=== PATIENT | female | born 1945 | race Caucasian/White ===

== ENCOUNTER → 2017-02-01 | Outpatient (CLI) | payer MEDICARE ==
--- NOTE | 2017-02-02 09:10 | MM ---
Reason for exam: screening (asymptomatic). Last mammogram was performed 1 year and 6 months ago. History: Patient is postmenopausal. Benign US RT VAD breast biopsy of the right breast, April 23, 2013. Benign right breast aspiration of the right breast, April 23, 2013. Benign left US cyst aspiration of the left breast, February 29, 2008. Took estrogen for 3 years. Physical Findings: A clinical breast exam by your physician is recommended on an annual basis and results should be correlated with mammographic findings. MG 3D Screening Mammo W/Cad Bilateral CC and MLO view(s) were taken. Prior study comparison: August 13, 2015, bilateral MG screening mammo w CAD. November 23, 2013, CAD bilateral diagnostic mammogram. April 16, 2013, right breast ultrasound. September 26, 2012, CAD bilateral diagnostic mammogram. April 02, 2010, bilateral digital screening mammogram. There are scattered fibroglandular densities. There is chronic nodularity bilaterally. No significant changes when compared with prior studies. ASSESSMENT: Benign, BI-RAD 2 RECOMMENDATION: Routine screening mammogram of both breasts in 1 year.
== END | disposition home or self-care (01) ==
LOC: RADMAMWWP 16:43
PROVIDERS: ATTEND Obstetrics & Gynecology
DX: Z12.31 Encounter for screening mammogram for malignant neoplasm of breast (principal)
CPT/HCPCS: 77063; G0202

== ENCOUNTER → 2019-01-31 | Outpatient (CLI) | payer MEDICARE ==
--- NOTE | 2019-02-01 11:01 | MM ---
Reason for exam: screening (asymptomatic). Last mammogram was performed 2 years ago. History: Patient is postmenopausal. Benign US RT VAD breast biopsy of the right breast, April 23, 2013. Benign right breast aspiration of the right breast, April 23, 2013. Benign left US cyst aspiration of the left breast, February 29, 2008. Took estrogen for 3 years. Physical Findings: A clinical breast exam by your physician is recommended on an annual basis and results should be correlated with mammographic findings. MG 3D Screening Mammo W/Cad Bilateral CC and MLO view(s) were taken. Prior study comparison: February 01, 2017, bilateral MG 3d screening mammo w/cad. August 13, 2015, bilateral MG screening mammo w CAD. The breast tissue is heterogeneously dense. This may lower the sensitivity of mammography. Benign appearing bilateral calcifications. No suspicious abnormality. Right biopsy marker noted. Stable left superior anterior depth asymmetries. ASSESSMENT: Benign, BI-RAD 2 RECOMMENDATION: Routine screening mammogram of both breasts in 1 year.
== END | disposition home or self-care (01) ==
LOC: RADMAMWWP 07:51
PROVIDERS: ATTEND Internal Medicine
DX: Z12.31 Encounter for screening mammogram for malignant neoplasm of breast (principal)
CPT/HCPCS: 77063; 77067

== ENCOUNTER → 2021-04-03 | Outpatient (CLI) | payer MEDICARE ==
--- NOTE | 2021-04-07 11:05 | MM ---
Reason for exam: screening (asymptomatic). Last mammogram was performed 2 years and 2 months ago. History: Patient is postmenopausal. Benign US RT VAD breast biopsy of the right breast, April 23, 2013. Benign right breast aspiration of the right breast, April 23, 2013. Benign left US cyst aspiration of the left breast, February 29, 2008. Took estrogen for 3 years. Physical Findings: A clinical breast exam by your physician is recommended on an annual basis and results should be correlated with mammographic findings. MG 3D Screening Mammo W/Cad Bilateral CC and MLO view(s) were taken. Prior study comparison: January 31, 2019, bilateral MG 3d screening mammo w/cad. February 01, 2017, bilateral MG 3d screening mammo w/cad. The breast tissue is heterogeneously dense. This may lower the sensitivity of mammography. Previous mammotome biopsy in the right breast. ASSESSMENT: Benign, BI-RAD 2 RECOMMENDATION: Routine screening mammogram of both breasts in 1 year.
== END | disposition home or self-care (01) ==
LOC: RADMAMWWP 13:42
PROVIDERS: ATTEND Obstetrics & Gynecology
DX: Z12.31 Encounter for screening mammogram for malignant neoplasm of breast (principal); Z78.0 Asymptomatic menopausal state
CPT/HCPCS: 77063; 77067

== ENCOUNTER → 2021-05-05 | Outpatient (CLI) | payer MEDICARE ==
--- NOTE | 2021-05-05 14:23 | CT ---
EXAMINATION TYPE: CT ChestAbdPelvis w con DATE OF EXAM: 05/05/2021 COMPARISON: None HISTORY: Follow up endometrial cancer. Z03.89, R68.89, C54.1 CT DLP: 612.2 mGycm CONTRAST: CT scan of the chest, abdomen and pelvis is performed with Oral Contrast and with IV Contrast, patien t injected with 55 mL of Isovue 300. CT Chest: LUNGS: The lungs are clear and free of infiltrate or atelectasis. No pulmonary nodule or mass is det ected. No pleural effusion or CT evidence of interstitial lung disease. MEDIASTINUM: Thoracic aorta is of normal caliber. The heart is not enlarged. No evidence for media stinal mass or adenopathy. HILAR STRUCTURES: No evidence for mass. No hilar adenopathy is appreciated. OTHER: No significant abnormality. CONTRAST CT ABDOMEN AND PELVIS FINDINGS: LIVER/GB: There is evidence of cholelithiasis. Renal cystic changes noted. No space occupying hepatic lesion. Biliary tree is of normal caliber. PANCREAS: No inflammation. No distinct mass. SPLEEN: No splenic enlargement. No lesion seen. ADRENALS: No nodule. No thickening. KIDNEYS/BLADDER: No hydronephrosis. No nephrolithiasis. No disctinct renal mass. BOWEL: Normal appendix. Normal bowel caliber. No inflammation. GENITAL ORGANS: Left ovarian cystic lesion measuring 4.2 cm. Correlate with pelvic ultrasound. The ut erus and right ovary are unremarkable. LYMPH NODES: No greater than 1cm abdominal or pelvic lymph nodes are appreciated. AORTA: No significant abnormality. OSSEOUS STRUCTURES: No significant abnormality is seen. OTHER: Small fat-containing supraumbilical hernia. Gastric banding surgery noted. IMPRESSION: 1. No distinct endometrial mass. Uterus is free of mass lesion. Left ovarian cystic lesion requires f urther evaluation with pelvic ultrasound. 2. No evidence for metastatic disease. 3. Small gallstones.
== END | disposition home or self-care (01) ==
LOC: RADCTMAIN 11:34
PROVIDERS: ATTEND Obstetrics & Gynecology
DX: C54.1 Malignant neoplasm of endometrium (principal); N83.202 Unspecified ovarian cyst, left side; K80.20 Calculus of gallbladder without cholecystitis without obstruction
CPT/HCPCS: 82565; 84520; 71260; 74177; 36415; Q9967

== ENCOUNTER → 2021-05-18 | Outpatient (CLI) | payer MEDICARE ==
[2021-05-18 11:45] LABS: INR 0.9 (<1.2); Partial Thromboplastin Time 23.7 sec (22.0-30.0); Prothrombin Time 10.1 sec (9.0-12.0)
[2021-05-18 14:42] LABS: HCT 40.9 % (37.2-46.3); HGB 13.5 g/dL (12.0-15.0); MCH 32.8 pg (27.0-32.0); MCV 99.5 fL (80.0-97.0); Mean Platelet Volume 11.3 fL (9.5-12.2); Platelet Count 256 X 10*3/uL (140-440); RBC 4.11 X 10*6/uL (4.10-5.20); RDW 13.1 % (11.5-14.5); WBC 8.67 X 10*3/uL (4.50-10.00)
[2021-05-18 14:50] LABS: African American GFR (CKD) 82.4 (60.0-200.0); Albumin 4.6 g/dL (3.80-4.90); Albumin/Globulin Ratio 2.09 (1.60-3.17); Anion Gap 9.1 mmol/L (4.00-12.00); Calcium 9.7 mg/dL (8.7-10.3); Carbon Dioxide 28.9 mmol/L (21.6-31.8); Globulin 2.2 g/dL (1.6-3.3); Non-African American GFR(CKD) 71.1 (60.0-200.0); Potassium 4.1 mmol/L (3.5-5.5); Total Bilirubin 0.5 mg/dL (0.2-1.2); Total Protein 6.8 g/dL (6.2-8.2)
[2021-05-18 15:26] LABS: Cancer Antigen 125 13.7 U/mL (0.0-30.1)
[2021-05-18 15:53] LABS: Appearance,Urine Clear (Clear); Bilirubin,Urine Negative (Negative); Blood,Urine Negative (Negative); Color,Urine Yellow; Glucose,Urine (UA) Negative (Negative); Ketones,Urine Negative (Negative); Leukocyte Esterase,Urine Negative (Negative); Nitrite,Urine Negative (Negative); PH, Urine 6.5 (5.0-8.0); Protein,Urine Negative (Negative); Specific Gravity,Urine 1.014 (1.001-1.035); Urobilinogen,Urine <2.0 mg/dL (<2.0)
== END | disposition home or self-care (01) ==
LOC: LABWHC1 10:37
PROVIDERS: ATTEND Obstetrics & Gynecology
DX: Z01.812 Encounter for preprocedural laboratory examination (principal)
CPT/HCPCS: 80053; 86304; 85027; 85610; 85730; 81003; 36415; U0003; C9803

== ENCOUNTER 2021-08-03 09:43 | Day surgery (SDC) | payer MEDICARE ==
[2021-07-30 12:05] VITALS: BMI 21.6
--- NOTE | 2021-08-03 08:06 | P.GSHP ---
History of Present Illness H&P Date: 08/03/21 CHIEF COMPLAINT: Endometrial cancer HISTORY OF PRESENT ILLNESS: The patient is a 75-year-old female diagnosed with endometrial cancer. She needs a Mediport placement for chemotherapy. PAST MEDICAL HISTORY: See list and reviewed PAST SURGICAL HISTORY: See list and reviewed CURRENT MEDICATIONS: See list and reviewed ALLERGIES: See list and reviewed SOCIAL HISTORY: See list and reviewed FAMILY HISTORY: See list and reviewed REVIEW OF ORGAN SYSTEMS: CONSTITUTIONAL: Has weight loss. PHYSICAL EXAMINATION: Vital signs: Stable GENERAL: Well developed and in no acute distress. Pleasant. HEENT: No sclera icterus. Extraocular movements grossly intact. Moist buccal mucosa. Head is atraumatic, normocephalic. Hears conversational speech. No nasal drainage. NECK: Supple without lymphadenopathy. No JV distention. CHEST: Non-labored respirations and equal bilateral excursions. CARDIOVASCULAR: Regular rate and rhythm. Palpable 2+ radial pulses. ABDOMEN: Nontender. MUSCULOSKELETAL: No clubbing, cyanosis or edema. NEUROLOGIC: No focal or lateralizing signs. PSYCH: Appropriate affect. Alert and oriented to person, place and time. ASSESSMENT: 1. Endometrial cancer 2. Need for chemotherapeutic access. PLAN: 1. Agree with Port-A-Cath placement. Past Medical History Past Medical History: Cancer, Diabetes Mellitus, Hypertension Additional Past Medical History / Comment(s): dx 04/03 uterine cancer History of Any Multi-Drug Resistant Organisms: None Reported Past Surgical History: No Surgical Hx Reported, Hysterectomy Additional Past Surgical History / Comment(s): 05/22/21 LAEC BSO with 1st jemal lymph node in each quadrant Past Anesthesia/Blood Transfusion Reactions: No Reported Reaction Smoking Status: Never smoker - Past Family History Brother(s) Family Medical History: Deep Vein Thrombosis (DVT) Father Family Medical History: Memory Impairment Mother Family Medical History: Memory Impairment Medications and Allergies Home Medications Medication Instructions Recorded Confirmed Type Chlorthalidone 25 mg PO DAILY 07/30/21 07/30/21 History Enalapril Maleate 10 mg PO DAILY 07/30/21 07/30/21 History Potassium Chloride ER [K-Dur 10] 10 meq PO DAILY 07/30/21 07/30/21 History Simvastatin [Zocor] 20 mg PO DAILY 07/30/21 07/30/21 History amLODIPine BESYLATE 5 mg PO DAILY 07/30/21 07/30/21 History metFORMIN HCL [Glucophage] 500 mg PO BID 07/30/21 07/30/21 History Allergies Allergy/AdvReac Type Severity Reaction Status Date / Time No Known Allergies Allergy Verified 07/30/21 11:49
[~2021-08-03 09:43] MED LIST: DEXAMETHASONE SOD PHOSPHATE 4 MG/ML 1 ML VIAL IV ONE; HYDROmorphone 0.5 MG/0.5 ML SYRINGE IVP PRN; LACTATED RINGERS 1,000 ML IV SCH; MIDAZOLAM 2 MG/2 ML VIAL IV PRN; ONDANSETRON 4 MG/2 ML VIAL IVP ONE; Pre Op ABX Message 1 EACH MISC MISCELLANE ONE
[2021-08-03] MEDS ORDERED: LIDOCAINE 1% (10MG/ML) FOR IV START INTRADERMA ONE (10:22)
[2021-08-03 10:29] LABS: Glucose,Whole Blood 143 mg/dL (75-99)
[2021-08-03] MEDS ORDERED: ePHEDrine SULFATE/0.9% NACL/PF 50 MG/5 ML SYRINGE IV ONE (10:43)
[2021-08-03] MEDS ORDERED: LIDOCAINE 1% INJ 10MG/ML (20 ML MDV) ONE (10:43)
[2021-08-03] MEDS ORDERED: fentaNYL (PF) 50 MCG/ML 2 ML AMP ONE (10:43)
[2021-08-03] MEDS ORDERED: PROPOFOL 10 MG/ML 20 ML VIAL IV ONE (10:43)
[2021-08-03] MEDS ORDERED: HEPARIN SODIUM,PORCINE 100 UNIT/ML 5 ML VIAL IV ONE (11:16)
[2021-08-03] MEDS ORDERED: BUPIVACAINE (PF) 0.5% 30 ML VIAL SQ ONE ×2 (11:17→11:23)
[2021-08-03] MEDS ORDERED: SODIUM CHLORIDE 0.9% 500 ML 500 ML with HEPARIN SODIUM,PORCINE 5,000 UNIT IV ONE ×2 (11:17)
[2021-08-03 11:59] VITALS: TEMP 97
[2021-08-03 13:05] VITALS: BP 127/71; PULSE 81; RESP 20
--- NOTE | 2021-08-03 13:29 | FL ---
EXAMINATION TYPE: FL guided central line placement DATE OF EXAM: 08/03/2021 FLUOROSCOPY Fluoroscopy time of 1 seconds was used during right chest wall Port-A-Cath placement. 2 image/s docu ment/s the procedure.
--- NOTE | 2021-08-03 13:54 | XR ---
EXAMINATION TYPE: XR chest 1V confirm line [facility] DATE OF EXAM: 08/03/2021 COMPARISON: NONE HISTORY: 75-year-old female confirm Mediport placement TECHNIQUE: Single frontal view of the chest is obtained. FINDINGS: Right anterior chest wall injection port with catheter tip near the cavoatrial junction. Heart normal size. Aorta and pulmonary vasculature within normal limits. Some costochondral calcifications at the left base. Left and device noted. No consolidation or pleural effusion. IMPRESSION: 1. Right anterior chest wall injection port. Catheter tip near the cavoatrial junction. 2. No acute cardiopulmonary process.
--- NOTE | 2021-08-05 11:32 | P.OP ---
Date of Procedure: 08/03/21 Description of Procedure: SURGEON: ALEE VALLES MD DRY CLEANING CHECKER: None. PREOPERATIVE DIAGNOSES: 1. Endometrial cancer 2. Need for chemotherapeutic access. POSTOPERATIVE DIAGNOSES: 1. Endometrial cancer 2. Need for chemotherapeutic access. PROCEDURES PERFORMED: 1. Ultrasound guided central venous access of the right internal jugular venous vein. 2. Fluoroscopic guidance for central venous access right internal jugular vein 1 seconds. 3. Placement of right internal jugular power port 6 Ukrainian by [email or web address], Xcela Plus Port ANESTHESIA: IV sedation with local. ESTIMATED BLOOD LOSS: 5 mL. SPECIMENS REMOVED: None. COMPLICATIONS: None. FINDINGS: 1. No thrombus encountered along the right carotid artery or internal jugular vein. 2. Access of the right internal jugular vein under ultrasound guidance. 3. Fluoroscopy of 1 seconds. INDICATIONS: The patient is a 75-year-old female recently diagnosed with endometrial cancer. She presents for chemotherapeutic access. Benefits and risks of surgical intervention were described including bleeding, infection, mechanical problems with his port. Informed consent was obtained. DESCRIPTION OR PROCEDURE: Patient was brought into the operating room, laid in supine position. After adequate IV sedation, the chest and right neck were prepped and draped in a standard sterile fashion including the shoulder with ChloraPrep. Timeout protocol was confirmed with the surgical team regarding the patient's name, procedure to be performed including preoperative medications for which she received IV antibiotics. Bilateral SCDs were placed. An ultrasound was used to capture views of the right internal jugular vein including right carotid artery, which was patent and without thrombus along its course. The right IJ was then localized using anesthetic for the skin. A 16 Ukrainian needle was used to access the IJ. A guidewire was advanced into the IJ with dark nonpulsatile venous blood. Two fingerbreadths distal to the clavicle, on the lateral third, a transverse 1.5 to 2 cm incision was deepened into the skin after localizing the skin. A pocket was created for the port. The port on the back table was flushed with heparinized saline and then attached to the catheter tubing. An adapter was fastened to the actual port site over the tubing. The port easily had fit snug into the pocket. A subcutaneous tunneler was placed along the open end of the tubing and brought out through the separate stab incision. Fluoroscopic guidance confirmed no kinking along the tubing and the port site. Next, the J-wire was exchanged for a catheter sheath for which the tubing was cut to 25 cm and then advanced through the catheter sheath. The Peel-away sheath was then removed and the tubing was secured at the junction of the superior vena cava as well as the right atrium. The tubing was found to be crossed however functional. This was all done under fluoroscopic guidance 1 seconds. Easy pullback as well as return and aspiration was obtained of the port site. The skin incision was closed using layers using 3-0 Vicryl for the subcu followed by 4-0 Monocryl in a running subcuticular fashion. At the stick site this was also reapproximated using 4-0 Monocryl. The incisions were covered with Optifoam, The skin was cleansed and Exofin liquid glue was applied. Optifoam dressing was placed over the port site. A total of 20 mL of local anesthetic was placed. At the end of the procedure, needle, sponge, and instrument count was verified correct by surgical sales representative. Heparin lock of 5 mL was placed. The patient was awoken and pain free and taken to the second stage postanesthesia care unit. The patient tolerated the procedure well. Plan - Discharge Summary Discharge Rx Participant: No New Discharge Prescriptions: New Acetaminophen [Tylenol] 650 mg PO Q4H #30 tab Continue RX: Chlorthalidone 25 mg PO DAILY RX: Simvastatin [Zocor] 20 mg PO DAILY RX: metFORMIN HCL [Glucophage] 500 mg PO BID RX: Enalapril Maleate 10 mg PO DAILY RX: amLODIPine BESYLATE 5 mg PO DAILY RX: Potassium Chloride ER [K-Dur 10] 10 meq PO DAILY Discharge Medication List RX: Chlorthalidone 25 mg PO DAILY 07/30/21 [History] RX: Enalapril Maleate 10 mg PO DAILY 07/30/21 [History] RX: Potassium Chloride ER [K-Dur 10] 10 meq PO DAILY 07/30/21 [History] RX: Simvastatin [Zocor] 20 mg PO DAILY 07/30/21 [History] RX: amLODIPine BESYLATE 5 mg PO DAILY 07/30/21 [History] RX: metFORMIN HCL [Glucophage] 500 mg PO BID 07/30/21 [History] Acetaminophen [Tylenol] 650 mg PO Q4H #30 tab 08/03/21 [Rx] Follow up Appointment(s)/Referral(s): Alee Valles MD [STAFF PHYSICIAN] - As Needed Patient Instructions/Handouts: Implanted Venous Access Port (GEN), How to Care for Your Implanted Venous Access Port (DC) Activity/Diet/Wound Care/Special Instructions: Remove dressing on Aug 06 or for infusion May shower. No bathtub soaks for 2 weeks, Aug 06. No wide motions of the right arm to prevent dislodge of your port for 3 weeks. EXPECT BRUISING AND SLEEP WITH 2 TO 3 PILLOWS. BRUISING RESOLVES IN 2 TO 3 WEEKS. Take Tylenol, Aleve or ibuprofen for pain as needed Discharge Disposition: HOME SELF-CARE
== END 2021-08-03 14:14 | disposition home or self-care (01) ==
LOC: OR 09:43
PROVIDERS: ATTEND Surgery Plastic and Reconstructive Surgery
DX: C54.1 Malignant neoplasm of endometrium (principal); Z79.84 Long term (current) use of oral hypoglycemic drugs; Z85.42 Personal history of malignant neoplasm of other parts of uterus; I10 Essential (primary) hypertension; E78.5 Hyperlipidemia, unspecified; E11.9 Type 2 diabetes mellitus without complications; Z79.899 Other long term (current) drug therapy
CPT/HCPCS: 36561; 77001; C1788; J1644; J1642; J1100; J0690; J2405; J2001; J3010; J2704

== ENCOUNTER → 2021-12-08 | Outpatient (CLI) | payer MEDICARE ==
--- NOTE | 2021-12-08 16:31 | CT ---
EXAMINATION TYPE: CT abdomen pelvis w con DATE OF EXAM: 12/08/2021 COMPARISON: 05/05/2021 HISTORY: Endometrial cancer, obs mets. CT DLP: 542.4 mGycm CONTRAST: CT scan of the abdomen and pelvis is performed with Oral Contrast and with IV Contrast, patient injec debra with 100 mL of Isovue 300. FINDINGS: LUNG BASES-: No visible nodule. No infiltrate. LIVER/GB: Stable hepatic cyst. Cholesterol gallstones identified. Tree is of normal caliber. PANCREAS: No inflammation. No distinct mass. SPLEEN: No splenic enlargement. No lesion seen. ADRENALS: No nodule. No thickening. KIDNEYS/BLADDER: No hydronephrosis. No nephrolithiasis. Left renal cystic lesion. Urinary bladder g rossly unremarkable. BOWEL: Normal appendix. Normal bowel caliber. No inflammation. GENITAL ORGANS: Hysterectomy and nephrectomy changes noted. No recurrent or residual mass. LYMPH NODES: No greater than 1cm abdominal or pelvic lymph nodes are appreciated. AORTA: No significant abnormality. OSSEOUS STRUCTURES: No significant abnormality is seen. OTHER: No significant additional abnormality is seen. IMPRESSION: 1. Hysterectomy and nephrectomy changes noted. No recurrent or residual mass. No evidence for metasta tic disease at this time.
== END | disposition home or self-care (01) ==
LOC: RADPROMAIN 14:03
PROVIDERS: ATTEND Internal Medicine Hematology & Oncology
DX: C54.9 Malignant neoplasm of corpus uteri, unspecified (principal); Z90.5 Acquired absence of kidney; Z90.710 Acquired absence of both cervix and uterus
CPT/HCPCS: 82565; 84520; 74177; J1642; Q9967 ×2

== ENCOUNTER → 2022-03-17 | Outpatient (CLI) | payer MEDICARE | END | disposition home or self-care (01) | LOC: LABWHC1 14:51 | PROVIDERS: ATTEND Obstetrics & Gynecology | DX: C54.1 Malignant neoplasm of endometrium (principal); Z79.899 Other long term (current) drug therapy; Z90.710 Acquired absence of both cervix and uterus | CPT/HCPCS: 36415; 86304 ==

== ENCOUNTER 2022-10-26 12:09 | Emergency (ER) | payer MEDICARE ==
[2022-10-26 12:45] VITALS: BP 183/98; PULSE 84; RESP 16; TEMP 98.7
--- NOTE | 2022-10-26 13:04 | XR ---
EXAMINATION TYPE: XR Hip LT and AP Pelvis DATE OF EXAM: 10/26/2022 CLINICAL HISTORY: pain TECHNIQUE: AP and frogleg views of the left hip are obtained. Single view pelvis also submitted. COMPARISON: None. FINDINGS: There is no acute fracture/dislocation evident. The joint space appears mildly narrowed. The overlying soft tissue appears unremarkable. IMPRESSION: 1. There is no acute fracture or dislocation.ICD 10 NO FRACTURE, INITIAL EVALUATION
--- NOTE | 2022-10-26 13:33 | ED ---
Lower Extremity Injury HPI - General Chief Complaint: Extremity Injury, Lower Stated Complaint: fall, hip pain Time Seen by Provider: 10/26/22 12:58 Source: patient, family, RN notes reviewed Mode of arrival: wheelchair Limitations: no limitations - History of Present Illness Initial Comments: This is a 77-year-old female who presents to the emergency department for a left hip injury. States that when she was in her bathroom this morning, she tripped and fell on her bottom. Denies hitting her head or any loss of consciousness. She was able to get up on her own without any difficulty. Denies being on any blood thinners. Currently has pain to the left hip. Denies any prior injuries or hip replacements. She is able to walk and move her leg without any difficulty. Denies any fevers, chills, sore throat, cough, dyspnea, chest pain, palpitations, abdominal pain, nausea, vomiting, diarrhea, back pain, or headaches. MD Complaint: hip injury Injury: Hip: Left Place: home - Related Data Home Medications Medication Instructions Recorded Confirmed Potassium Chloride ER [K-Dur 10] 10 meq PO DAILY 07/30/21 10/06/21 Simvastatin [Zocor] 20 mg PO DAILY 07/30/21 10/06/21 metFORMIN HCL [Glucophage] 500 mg PO BID 07/30/21 10/06/21 Previous Rx's Medication Instructions Recorded Acetaminophen [Tylenol] 650 mg PO Q4H #30 tab 08/03/21 Allergies Allergy/AdvReac Type Severity Reaction Status Date / Time No Known Allergies Allergy Verified 10/06/21 14:01 Review of Systems ROS Statement: Those systems with pertinent positive or pertinent negative responses have been documented in the HPI. ROS Other: All systems not noted in ROS Statement are negative. Past Medical History Past Medical History: Cancer, Diabetes Mellitus, Hypertension Additional Past Medical History / Comment(s): dx 04/03 uterine cancer History of Any Multi-Drug Resistant Organisms: None Reported Past Surgical History: No Surgical Hx Reported, Hysterectomy Additional Past Surgical History / Comment(s): 05/22/21 ALEC BSO with 1st jemal lymph node in each quadrant Past Anesthesia/Blood Transfusion Reactions: No Reported Reaction Past Psychological History: No Psychological Hx Reported Smoking Status: Never smoker - Past Family History Brother(s) Family Medical History: Deep Vein Thrombosis (DVT) Father Family Medical History: Memory Impairment Mother Family Medical History: Memory Impairment General Exam Limitations: no limitations General appearance: alert, in no apparent distress Head exam: Present: atraumatic, normocephalic, normal inspection Respiratory exam: Present: normal lung sounds bilaterally. Absent: respiratory distress, wheezes, rales, rhonchi, stridor Cardiovascular Exam: Present: regular rate, normal rhythm, normal heart sounds. Absent: systolic murmur, diastolic murmur, rubs, gallop, clicks Extremities exam: Present: other (No shortening or rotation of the left leg. Full ROM of the left hip and leg. Minor tenderness to palpation over the left greater trochanter.) Neurological exam: Present: alert, oriented X3, CN II-XII intact Psychiatric exam: Present: normal affect, normal mood Skin exam: Present: warm, dry, intact, normal color. Absent: rash Course Vital Signs 10/26/22 12:42 Temperature 98.7 F Pulse Rate 84 Respiratory 16 Rate Blood Pressure 183/98 O2 Sat by Pulse 98 Oximetry Medical Decision Making - Medical Decision Making This is a 77-year-old female who presents to the emergency department for left hip pain after fall. XR of the left hip obtained, my interpretation reveals no evidence of acute fractures or dislocations. Due to her age and the noted injury, computed tomography scan of the hip was obtained for better evaluation. My interpretation of the computed tomography scan again identifies no fractures or dislocations. Patient is able to ambulate and move her leg without any difficulty. Advised ibuprofen and Tylenol for pain relief and applying ice for 10-15 minutes every 2-3 hours. Return precautions reviewed in depth, the patient is instructed to return to the emergency department with any new, worsening, or concerning symptoms. Patient verbalized understanding. This case was discussed in detail with the attending ED physician. Presentation, findings, and treatment plan discussed in detail as well. - Radiology Data Radiology results: report reviewed, image reviewed Disposition Clinical Impression: Contusion of left hip Disposition: HOME SELF-CARE Instructions (If sedation given, give patient instructions): Fall Prevention for Older Adults (ED), Hip Pain (ED) Additional Instructions: Return to the emergency department with any new, worsening, or concerning symptoms. Alternate with ibuprofen and Tylenol for pain relief. Apply ice for 10-20 minutes every 2-3 hours for the first couple of days. Use heat thereafterwards. Follow up with your primary care provider in 1-2 days. Is patient prescribed a controlled substance at d/c from ED?: No Referrals: Abram Morse MD [Primary Care Provider] - 1-2 days
--- NOTE | 2022-10-26 13:58 | CT ---
EXAMINATION TYPE: CT hip LT wo con CT DLP: 492.9 mGycm, Automated exposure control for dose reduction was used. DATE OF EXAM: 10/26/2022 1:50 PM COMPARISON: Extremity radiograph same day. CLINICAL INDICATION:Female, 77 years old with history of Pain after fall, normal xray; PHH, Pain afte r fall, normal X-ray TECHNIQUE: Axial images were obtained of the left hip . Additional coronal and sagittal reformatted images and soft tissue and bone window were obtained for review. . Contrast used: None Oral contrast used: None FINDINGS: There is no evidence of fracture, subluxation, or dislocation. No significant soft tissue swelling or joint effusion is identified. No focal muscular atrophy or edema is identified. No radiop aque foreign body identified. Mild osteophyte formation of the superior acetabulum. Atherosclerosis of the arterial vasculature. Di verticula in the sigmoid colon. IMPRESSION: 1. No evidence of fracture of the visualized osseous structures. 2. Mild left hip osteoporosis. 3. Colonic diverticulosis. 4.
== END 2022-10-26 14:28 | disposition home or self-care (01) ==
LOC: EC 12:09
DX: S70.02XA Contusion of left hip, initial encounter (principal); E11.9 Type 2 diabetes mellitus without complications; I10 Essential (primary) hypertension; Z79.899 Other long term (current) drug therapy; Z79.84 Long term (current) use of oral hypoglycemic drugs; Z90.710 Acquired absence of both cervix and uterus; W01.10XA Fall on same level from slipping, tripping and stumbling with subsequent striking against unspecified object, initial encounter; Y92.002 Bathroom of unspecified non-institutional (private) residence as the place of occurrence of the external cause
CPT/HCPCS: 73502; 99284

== ENCOUNTER → 2022-11-02 | Outpatient (CLI) | payer MEDICARE ==
--- NOTE | 2022-11-02 13:40 | CT ---
EXAMINATION TYPE: CT ChestAbdPelvis w con DATE OF EXAM: 11/02/2022 COMPARISON: 12/08/2021 HISTORY: uterine ca CT DLP: 832.6 mGycm CONTRAST: CT scan of the chest, abdomen and pelvis is performed with Oral Contrast and with IV Contrast, patien t injected with 70 mL of Isovue 300. CT Chest: LUNGS: The lungs are clear and free of infiltrate or atelectasis. No pulmonary nodule or mass is det ected. No pleural effusion or CT evidence of interstitial lung disease. MEDIASTINUM: Thoracic aorta is of normal caliber. The heart is not enlarged. No evidence for media stinal mass or adenopathy. HILAR STRUCTURES: No evidence for mass. No hilar adenopathy is appreciated. OTHER: No significant abnormality. CONTRAST CT ABDOMEN AND PELVIS FINDINGS: LIVER/GB: Multiple gallstones identified. Simple hepatic cyst redemonstrated. Simple cysts of the nando er is stable. Biliary tree is of normal caliber. PANCREAS: No inflammation. No distinct mass. SPLEEN: No splenic enlargement. No lesion seen. ADRENALS: No nodule. No thickening. KIDNEYS/BLADDER: No hydronephrosis. No nephrolithiasis. No distinct renal mass. BOWEL: Normal appendix. Normal bowel caliber. No inflammation. Diverticulosis GENITAL ORGANS: Hysterectomy changes. No evidence for vaginal cuff mass. LYMPH NODES: No greater than 1cm abdominal or pelvic lymph nodes are appreciated. AORTA: No significant abnormality. OSSEOUS STRUCTURES: No significant abnormality is seen. OTHER: No significant additional abnormality is seen. IMPRESSION: 1. No evidence for metastatic disease.
== END | disposition home or self-care (01) ==
LOC: RADPROMAIN 10:39
PROVIDERS: ATTEND Internal Medicine Hematology & Oncology
DX: C54.9 Malignant neoplasm of corpus uteri, unspecified (principal); E11.9 Type 2 diabetes mellitus without complications; I10 Essential (primary) hypertension; E86.0 Dehydration
CPT/HCPCS: 82565; 84520; 71260; 74177; 36415; J1642; Q9967

== ENCOUNTER 2023-07-08 08:21 | Day surgery (SDC) | payer MEDICARE ==
[2023-07-01 16:14] VITALS: BMI 20.7
--- NOTE | 2023-07-08 05:22 | P.GSHP ---
History of Present Illness H&P Date: 07/08/23 CHIEF COMPLAINT: Uterine cancer HISTORY OF PRESENT ILLNESS: The patient is a 77-year-old female diagnosed with uterine cancer. She had a Mediport placement. She presents for Port-A-Cath removal upon completion of her chemotherapy. PAST MEDICAL HISTORY: Breast cancer. PAST SURGICAL HISTORY: Breast biopsy. CURRENT MEDICATIONS: See list. ALLERGIES: See list. SOCIAL HISTORY: See list. FAMILY HISTORY: See list. REVIEW OF ORGAN SYSTEMS: CONSTITUTIONAL: Denies any fever or chills. Denies recent weight loss or weight gain. HEENT: Denies any trouble with vision, hearing or nosebleeds. No difficulty swallowing. PHYSICAL EXAMINATION: Vital signs: Stable GENERAL: Well developed female and in no acute distress. Pleasant. HEENT: No sclera icterus. Extraocular movements grossly intact. Moist buccal mucosa. Head is atraumatic, normocephalic. Hears conversational speech. No nasal drainage. NECK: Supple without lymphadenopathy. No JV distention. CHEST: Non-labored respirations and equal bilateral excursions. CARDIOVASCULAR: Regular rate and rhythm. Palpable 2+ radial pulses. ABDOMEN: Nontender. MUSCULOSKELETAL: No clubbing, cyanosis or edema. NEUROLOGIC: No focal or lateralizing signs. PSYCH: Appropriate affect. Alert and oriented to person, place and time. ASSESSMENT: 1. Uterine cancer. PLAN: 1. Agree with Port-A-Cath removal Past Medical History Past Medical History: Cancer, Diabetes Mellitus, Hypertension Additional Past Medical History / Comment(s): dx 04/03 uterine cancer History of Any Multi-Drug Resistant Organisms: None Reported Past Surgical History: Hysterectomy Additional Past Surgical History / Comment(s): 05/22/21 ALEC BSO with 1st jemal lymph node in each quadrant , [facility] PORT. Past Anesthesia/Blood Transfusion Reactions: No Reported Reaction Past Psychological History: No Psychological Hx Reported Smoking Status: Never smoker Past Alcohol Use History: None Reported Past Drug Use History: None Reported - Past Family History Brother(s) Family Medical History: Deep Vein Thrombosis (DVT) Father Family Medical History: Memory Impairment Mother Family Medical History: Memory Impairment Medications and Allergies Home Medications Medication Instructions Recorded Confirmed Type metFORMIN HCL [Glucophage] 500 mg PO BID 07/30/21 07/01/23 History Allergies Allergy/AdvReac Type Severity Reaction Status Date / Time No Known Allergies Allergy Verified 07/01/23 15:56
[~2023-07-08 08:21] MED LIST changes: +ACETAMINOPHEN TAB 500 MG TAB PO PRN; -DEXAMETHASONE SOD PHOSPHATE 4 MG/ML 1 ML VIAL IV ONE; -HYDROmorphone 0.5 MG/0.5 ML SYRINGE IVP PRN; -LACTATED RINGERS 1,000 ML IV SCH; -MIDAZOLAM 2 MG/2 ML VIAL IV PRN; -ONDANSETRON 4 MG/2 ML VIAL IVP ONE; +ONDANSETRON 4 MG/2 ML VIAL IVP PRN; -Pre Op ABX Message 1 EACH MISC MISCELLANE ONE
[2023-07-08] MEDS ORDERED: HYDROmorphone 0.5 MG/0.5 ML SYRINGE IVP PRN (08:38)
[2023-07-08] MEDS ORDERED: MIDAZOLAM 2 MG/2 ML VIAL IV PRN (08:38)
[2023-07-08] MEDS ORDERED: LACTATED RINGERS 1,000 ML IV SCH (08:38)
[2023-07-08 08:52] VITALS: TEMP 97.9
[2023-07-08 09:13] LABS: Glucose,Whole Blood 128 mg/dL (70-110)
[2023-07-08] MEDS ORDERED: MIDAZOLAM 2 MG/2 ML VIAL ONE (09:39)
[2023-07-08] MEDS ORDERED: KETAMINE 10 MG/ML 20 ML VIAL ONE (09:39)
[2023-07-08] MEDS ORDERED: PROPOFOL 10 MG/ML 20 ML VIAL IV ONE (09:39)
[2023-07-08] MEDS ORDERED: fentaNYL (PF) 50 MCG/ML 2 ML AMP ONE (09:39)
[2023-07-08] MEDS ORDERED: LIDOCAINE 0.5%-EPI 1:200,000 50 ML VIAL SQ ONE ×2 (09:44)
--- NOTE | 2023-07-08 10:32 | P.OP ---
Date of Procedure: 07/08/23 Description of Procedure: SURGEON: ALEE VALLES MD GROUND TRANSPORTATION OPERATOR: None. PREOPERATIVE DIAGNOSIS: 1. Uterine cancer 2. Chemotherapeutic venous access. POSTOPERATIVE DIAGNOSIS: 1. Uterine cancer 2. Chemotherapeutic venous access. OPERATION: Removal of right internal jugular vein Port-A-Cath. ANESTHESIA: MAC with 30 mL local. ESTIMATED BLOOD LOSS: 0 mL SPECIMENS REMOVED: Port-A-Cath COMPLICATIONS: None. FINDINGS: 1. Unremarkable Port-a-cath extraction. INDICATIONS: The patient is a 77-year-old female who completed chemotherapy. She now has elected for removal. Benefits and risks were described. Informed consent was obtained. DESCRIPTION OF PROCEDURE: Patient was brought to the operating room, laid in supine position. After IV sedation the chest wall was prepped and draped in standard sterile fashion. Prior to incision, a timeout protocol was confirmed with surgical team regarding the patient's name including procedures to be performed. As this was a clean case, no further antibiotics were required. Additionally, early ambulation was encouraged for DVT prophylaxis. Attention was brought to the area of the port site, whereby a total of 50 mL of local was infiltrated into the skin for a field block. A #15 blade was used to incise along the previous cicatrix. Electro- Bovie cautery was used to control for hemostasis. Adhesions were lysed around the Mediport. The port was extracted without sequelae. Pressure for 2 minutes was placed along the internal jugular vein. Hemostasis was checked along the pocket of the Port-A-Cath site. The wound was closed in layers using 3-0 Vicryl for the deep subcutaneous tissues followed by 4-0 Monocryl in a running subcuticular fashion. The skin was cleansed with dilute hydrogen peroxide. Exofin was applied. Optifoam was applied to the skin. At the end of the procedure needle, sponge and instrument counts were verified correct by the surgical dressing maker. The patient had tolerated the procedure well and was taken to postanesthesia care in stable condition. Plan - Discharge Summary Discharge Rx Participant: No New Discharge Prescriptions: New Acetaminophen Tab [Tylenol Tab] 500 mg PO Q6H PRN #30 tablet PRN Reason: Pain Continue metFORMIN HCL [Glucophage] 500 mg PO BID Discharge Medication List metFORMIN HCL [Glucophage] 500 mg PO BID 07/30/21 [History] Acetaminophen Tab [Tylenol Tab] 500 mg PO Q6H PRN #30 tablet 07/08/23 [Rx] Follow up Appointment(s)/Referral(s): Alee Valles MD [STAFF PHYSICIAN] - As Needed Patient Instructions/Handouts: Removal of a Central Line, PICC, or Midline Catheter (GEN) Discharge Disposition: HOME SELF-CARE
[2023-07-08 10:43] VITALS: BP 127/69; PULSE 80; RESP 18
== END 2023-07-08 10:58 | disposition home or self-care (01) ==
LOC: OR 08:21
PROVIDERS: ATTEND Surgery Plastic and Reconstructive Surgery
DX: C55 Malignant neoplasm of uterus, part unspecified (principal); I10 Essential (primary) hypertension; E11.9 Type 2 diabetes mellitus without complications; Z79.84 Long term (current) use of oral hypoglycemic drugs; Z98.890 Other specified postprocedural states; Z85.3 Personal history of malignant neoplasm of breast; Z90.710 Acquired absence of both cervix and uterus; Z79.899 Other long term (current) drug therapy
CPT/HCPCS: 36590; J2250; J0690; J2405; J3010; J2704

== ENCOUNTER → 2023-09-23 | Outpatient (CLI) | payer MEDICARE ==
[2023-09-23 11:39] LABS: African American GFR (CKD) 63 (>60 ml/min/1.73 sqM); Blood Urea Nitrogen 24 mg/dL (7-17); Non-African American GFR(CKD) 55 (>60 ml/min/1.73 sqM)
--- NOTE | 2023-09-23 13:20 | CT ---
EXAMINATION TYPE: CT abdomen pelvis w con DATE OF EXAM: 09/23/2023 COMPARISON: 12/08/2021 HISTORY: obs for mets hx of uterine ca CT DLP: 388.50 mGycm Automated exposure control for dose reduction was used. TECHNIQUE: Helical acquisition of images was performed from the lung bases through the pelvis. CONTRAST: Performed with Oral Contrast and with IV Contrast, patient injected with 80ml mL of Isovue 370. FINDINGS: The lung bases are clear. Patient is status post lap band procedure. There is a 2.4 cm well-circumscribed hypodensity within the medial segment left lobe of liver consist ent with cirrhosis. There is a tiny cyst of the lateral segment as well. There are no focal masses wi thin the pancreas, spleen or adrenal glands. There is mild cholelithiasis but no biliary ductal dilat ation. There are no solid renal masses or hydronephrosis. There is a simple cortical cyst of the left kidney . There is no retroperitoneal adenopathy or hemorrhage in the caliber of the abdominal aorta is normal. The bowel loops are normal in caliber and there is no dilatation or obstruction. No inflammatory thao ges identified in the bowel wall or mesentery. There is no free intraperitoneal air or fluid. There are surgical absence of uterus. There is no pelvic mass, free fluid, abscess or adenopathy No focal osseous lesions are seen. IMPRESSION: 1. No evidence of metastatic disease. 2. Postsurgical changes of lap band procedure and hysterectomy. 3. stable hepatic cyst 4. Cholelithiasis. 5. No interval change.
== END | disposition home or self-care (01) ==
LOC: RADCTMAIN 11:01
PROVIDERS: ATTEND Internal Medicine Hematology & Oncology
DX: C54.9 Malignant neoplasm of corpus uteri, unspecified (principal); K80.20 Calculus of gallbladder without cholecystitis without obstruction; K76.89 Other specified diseases of liver; E86.0 Dehydration; I10 Essential (primary) hypertension; E11.9 Type 2 diabetes mellitus without complications; Z98.890 Other specified postprocedural states; Z90.710 Acquired absence of both cervix and uterus
CPT/HCPCS: 82565; 84520; 74177; 36415; Q9967

== ENCOUNTER → 2024-01-31 | Outpatient (CLI) | payer MEDICARE ==
--- NOTE | 2024-01-31 13:22 | CT ---
EXAMINATION TYPE: CT brain wo con CT DLP: 1121 mGycm, Automated exposure control for dose reduction was used. DATE OF EXAM: 01/31/2024 12:22 PM COMPARISON: None.. CLINICAL INDICATION:Female, 78 years old with history of R41.3 memory loss, memory loss TECHNIQUE: Brain: Axial CT images of the brain were obtained with coronal and sagittal reformats created and rev iewed. Contrast used: None. Oral contrast used: None. FINDINGS: Brain: Extra-axial spaces: No abnormal extra-axial fluid collections. Ventricular system: Prominent ventricles and sulci consistent with age-related resolution. Cerebral parenchyma: No acute intraparenchymal hemorrhage or mass effect. The caruso-white junction is well differentiated. Cerebellum: Unremarkable. Mass effect: No evidence of midline shift. Intracranial vasculature: unremarkable Soft tissues: Normal. Calvarium/osseous structures: No depressed skull fracture. Paranasal sinuses and mastoid air cells: Mild scattered paranasal sinus disease. Visualized orbits: Orbital contents are intact. IMPRESSION: No acute intracranial process. Age-related involution
== END | disposition home or self-care (01) ==
LOC: RADCTMAIN 11:58
PROVIDERS: ATTEND Family Medicine
DX: R41.3 Other amnesia (principal)
CPT/HCPCS: 70450

== ENCOUNTER → 2024-03-27 | Outpatient (CLI) | payer MEDICARE ==
--- NOTE | 2024-03-27 21:25 | MR ---
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 TECHNIQUE: Multi planar, multi sequence imaging was performed through the brain including: T1, T2, In version recovery, Diffusion weighted imaging, and gradient echo imaging. No gadolinium was given. FINDINGS: Remote right aguilar radiata infarct with gliosis. Scattered foci of high T2 signal intensity are seen within the periventricular white matter. There is generalized parenchymal volume loss identified, most pronounced within the bilateral temporal and pa rietal lobes. Midline structures show no abnormality. The ventricles are prominent in size and in proportion to de gree of parenchymal volume loss Diffusion-weighted imaging shows no evidence of restricted diffusion. The susceptibility weighted images do not reveal any evidence for micro-hemorrhage. The bone marrow signal is within normal limits. Paranasal sinuses and mastoid air cells: No significant paranasal sinus disease. Visualized orbits: Orbital contents are intact. IMPRESSION: 1. No evidence of acute intracranial process. 2. 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 3. Cerebral parenchymal volume loss, parietal temporal lobe predominant, which has been associated wi th Alzheimer's disease.
== END | disposition home or self-care (01) ==
LOC: RADMRIMAIN 18:31
PROVIDERS: ATTEND Family Medicine
DX: G30.0 Alzheimer's disease with early onset (principal); Z86.73 Personal history of transient ischemic attack (TIA), and cerebral infarction without residual deficits
CPT/HCPCS: 70551